=== PATIENT | male | born 1985 | race Caucasian/White ===

== ENCOUNTER 2016-09-28 08:39 | Emergency (ER) | payer SELFPAY ==
[2016-09-28 09:25] LABS: ABSOLUTE BASOPHILS # (AUTO) 0.1 10^3/uL (0.0-0.2); ABSOLUTE EOSINOPHILS # (AUTO) 0.1 10^3/uL (0.0-0.6); ABSOLUTE LYMPHOCYTES (AUTO) 1.9 10^3/uL (0.5-4.7); ABSOLUTE MONOCYTES (AUTO) 0.6 10^3/uL (0.1-1.4); ABSOLUTE NEUT (AUTO) 5.5 10^3/uL (1.7-8.2); BASOPHILS % (AUTO) 0.8 % (0-2); EOSINOPHILS % (AUTO) 1.4 % (0-6); HEMATOCRIT 47.4 % (37.9-51.0); HEMOGLOBIN 16.2 g/dL (13.5-17.0); HGB HCT DIFFERENCE 1.2; LYMPHOCYTES % (AUTO) 23.4 % (13-45); MEAN CORPUSCULAR HEMOGLOBIN 29.2 pg (27.0-33.4); MEAN CORPUSCULAR HGB CONC 34.1 g/dL (32.0-36.0); MEAN CORPUSCULAR VOLUME 86 fl (80-97); MONOCYTES % (AUTO) 7.1 % (3-13); RED BLOOD COUNT 5.54 10^6/uL (4.35-5.55); RED CELL DISTRIBUTION WIDTH 13.1 % (11.5-14.0); SEGMENTED NEUTROPHILS % (AUTO) 67.3 % (42-78); WHITE BLOOD COUNT 8.2 10^3/uL (4.0-10.5)
[2016-09-28 09:36] LABS: ALANINE AMINOTRANSFERASE 87 U/L (21-72); ALBUMIN 3.9 g/dL (3.5-5.0); ALKALINE PHOSPHATASE 108 U/L (38-126); ANION GAP 15 (5-19); ASPARTATE AMINO TRANSFERASE 97 U/L (17-59); BILIRUBIN,TOTAL 0.4 mg/dL (0.2-1.3); BLOOD UREA NITROGEN 11 mg/dL (7-20); CALCIUM 8.7 mg/dL (8.4-10.2); CARBON DIOXIDE 26 mmol/L (22-30); CHLORIDE 103 mmol/L (98-107); CREATININE RESULT 0.66 mg/dL (0.52-1.25); GLUCOSE 118 mg/dL (75-110); POTASSIUM 4.4 mmol/L (3.6-5.0); SODIUM 144.4 mmol/L (137-145); TOTAL PROTEIN 6.9 g/dL (6.3-8.2)
[2016-09-28 09:46] LABS: ALCOHOL 466 mg/dL (NONE DETECTED)
[2016-09-28 10:09] LABS: APPEARANCE,URINE CLEAR; BILIRUBIN,URINE NEGATIVE (NEGATIVE); GLUCOSE, URINE NEGATIVE (NEGATIVE); KETONES,URINE NEGATIVE (NEGATIVE); LEUKOCYTE ESTERASE,URINE NEGATIVE (NEGATIVE); NITRITE,URINE NEGATIVE (NEGATIVE); PROTEIN,URINE 30 mg/dL (NEGATIVE); URINE SPECIFIC GRAVITY 1.005; UROBILINOGEN,URINE NEGATIVE mg/dL (<2.0)
[2016-09-28 10:27] LABS: URINE BARBITURATES SCREEN NEGATIVE; URINE METHADONE SCREEN NEGATIVE; URINE PHENCYCLIDINE SCREEN NEGATIVE
--- NOTE | 2016-09-28 11:09 | ER Document Report ---
ED General - General Mode of Arrival: Medic Information source: Patient TRAVEL OUTSIDE OF THE U.S. IN LAST 30 DAYS: No - HPI Onset: Other - see narrative Onset/Duration: Persistent Associated symptoms: None <SERA OAKLEY - Last Filed: 09/28/16 15:27> <SHARONDA HERMAN - Last Filed: 09/28/16 23:58> <YANY HAM - Last Filed: 09/29/16 07:19> <LILLIAN BILLINGSLEY - Last Filed: 09/29/16 12:13> - General Chief Complaint: ETOH Abuse Stated Complaint: POSSIBLE ETOH Notes: Patient is a 31 year old male that presents to the emergency department today with complaints of "alcohol poisoning". Patient was brought in by EMS secondary to being found slumped against a wall at [facility]. Patient states he has been drinking for 3 straight days and that he does not normally drink. 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 Patient states he had a relationship with a girl that "did not work out" so [facility]. Patient is arousable with sternal rub. (SERA OAKLEY) Past Medical History - General Information source: Patient - Social History Smoking Status: Unknown if Ever Smoked Cigarette use (# per day): No Frequency of alcohol use: Heavy Drug Abuse: None Lives with: Family Family History: Reviewed & Not Pertinent Patient has suicidal ideation: No Patient has homicidal ideation: No - Past Medical History Cardiac Medical History: Reports: Hx Hypertension Surgical Hx: Negative <SERA OAKLEY - Last Filed: 09/28/16 15:27> Review of Systems - Review of Systems -: Yes ROS unobtainable due to patient's medical condition - intoxicated <SERA OAKLEY - Last Filed: 09/28/16 15:27> Physical Exam - General General appearance: Other - appears intoxicated, aroused with sternal rub - HEENT Head: Normocephalic, Atraumatic Eyes: Normal Conjunctiva: Normal - Respiratory Respiratory status: No respiratory distress Chest status: Nontender Breath sounds: Normal - Cardiovascular Rhythm: Regular Heart sounds: Normal auscultation - Abdominal Tenderness: Tender - diffusely tender, no external bruising - Extremities General upper extremity: Normal inspection, Nontender. No: Edema General lower extremity: Normal inspection, Nontender. No: Edema - Neurological Neuro grossly intact: Yes Cognition: Normal Orientation: AAOx4 - Psychological Associated symptoms: Other - intoxicated - Skin Skin Temperature: Warm Skin Moisture: Dry Skin Color: Normal <SERA OAKLEY - Last Filed: 09/28/16 15:27> Course - Laboratory Result Diagrams: 09/28/16 08:50 09/28/16 08:50 <SERA OAKLEY - Last Filed: 09/28/16 15:27> - Laboratory Result Diagrams: 09/28/16 08:50 09/28/16 08:50 <SHARONDA HERMAN - Last Filed: 09/28/16 23:58> - Laboratory Result Diagrams: 09/28/16 08:50 09/28/16 08:50 <YANY HAM - Last Filed: 09/29/16 07:19> - Laboratory Result Diagrams: 09/28/16 08:50 09/28/16 08:50 <LILLIAN BILLINGSLEY - Last Filed: 09/29/16 12:13> - Re-evaluation Re-evalutation: 09/28/16 21:49 I personally performed the services described in the documentation, reviewed and edited the documentation which was dictated to my scribe in my presence, and it accurately records my words and actions. \\ Patient brought into the emergency department after EMS was called at [facility]. Patient was apparently heavily intoxicated on ED arrival he smells of alcohol has a blood alcohol level CDLXVI no external signs of trauma neurological deficits and is maintaining his airway. She'll he had some mild abdominal tenderness we did a CAT scan rule out trauma was negative. Reassessing him on multiple occasions. Call to the bedside by nurse apparently he got into his bag and was drinking more alcohol in the room and then was being in the trashcan. Reassessed him at this point still awake alert and arousable, further discussion with the patient he states he was suicidal and wants to harm himself. He is currently here the other day intoxicated describes a long- standing history of substance abuse but won't specifically tell me what. Denies any recent use of drugs. Says he has been drinking heavily for the past 4 days. He states he wants to drink himself until he dies. States he has a history of alcohol withdrawal alcohol poisoning with hospital visits in the past and withdrawal seizures. He P alcohol drawn banana bag given patient assessed agitated given Ativan Patient placed on IVC given Ativan not hypertensive or tachycardic IVC protocol spoke with Dr. Ham in regards to watching for alcohol withdrawal. Patient is on any seizure activity at this point. (SHARONDA HERMAN) 09/29/16 06:18 Patient again awoke briefly to tell the nurse that he would like some benzodiazepine medications for withdrawal. The nurse came in and told me this. She also informed me that he has no tremor and his heart rate has been normal. He has not had vomiting and to her he looks very well. Ten minutes later I was able to go and evaluate the patient. He once again was asleep. He does not have a tremor. His heart rate is normal. He has no signs of withdrawal. 09/29/16 07:19 Liver evaluate the patient now. He now has intermittent tremor. His heart rate is in the low 100s. I will give him 5mg Valium as these are the first physical signs of withdrawal. I did check out the patient to the morning ER physician, Dr. Tadeo, who will continue to monitor the patient. (YANY HAM) - Vital Signs Vital signs: Temp Pulse Resp BP Pulse Ox 97.5 F 114 H 14 136/84 H 93 09/29/16 07:05 09/28/16 22:11 09/29/16 07:00 09/28/16 22:11 09/29/16 07:00 (SERA OAKLEY) (SHARONDA HERMAN) (YANY HAM) (LILLIAN BILLINGSLEY) - Laboratory Laboratory results interpreted by me: 09/28/16 09/28/16 09/28/16 08:50 09:55 22:11 Glucose 118 H AST 97 H ALT 87 H Urine Protein 30 H Urine Blood SMALL H Salicylates < 1.0 L Acetaminophen < 10 L Serum Alcohol 466 H* (SERA OAKLEY) (SHARONDA HERMAN) (YANY HAM) (LILLIAN BILLINGSLEY) - EKG Interpretation by Me Additional EKG results interpreted by me: 09/29/16 00:34 EKG is reviewed and interpreted by me. EKG shows normal sinus rhythm with rate of [address] segment elevation or depression. No ischemic T wave inversions. NJ interval, QRS duration, QTC levels are within normal range. No old EKG available for comparison. (YANY HAM) - Transfer of Care Notes: 09/29/16 02:00 Patient's nurse if he could have some for withdrawal symptoms. Pressors physician and signs of withdrawal. He's had no tremors. He has not been tachycardic. Some seizure-like activity. He slept well. He is infectious of most of time is spent here. I went in to reassess him. Patient's currently sleeping. He's not tachycardic. Has no signs of seizures. I will continue to reassess him for signs of withdrawal. He did receive Ativan not long ago. This caused him to have a slight oxygen desaturation therefore did not want to do more benzodiazepines at this time unless he is showing actual signs of withdrawal. (YANY HAM) Discharge <SERA OAKLEY - Last Filed: 09/28/16 15:27> <SHARONDA HERMAN - Last Filed: 09/28/16 23:58> <YANY HAM - Last Filed: 09/29/16 07:19> <LILLIAN BILLINGSLEY - Last Filed: 09/29/16 12:13> - Discharge Clinical Impression: etoh intoxication, Suicidal ideation Condition: Stable Disposition: HOME, SELF-CARE Additional Instructions: ACUTE ALCOHOL INTOXICATION and ALCOHOL ABUSE: Your evaluation revealed very high levels of alcohol. You can from drinking a large amount of alcohol rapidly! Further, there's the risk of falls , traffic accidents, and fights. A high portion (about 50 percent) of the serious injuries seen in hospital emergency rooms are caused by alcohol. Alcohol overdosage is usually due to an underlying emotional or psychiatric problem. You may benefit from counselling. If "binge" drinking is an ongoing problem for you, or if you drink ANY AMOUNT of alcohol EVERY day, you most likely have a tendency to alcoholism. You should avoid alcohol totally. We can refer you for treatment. Persons with alcohol problems are often also prone to other addictions -- you should discuss any use of medications or drugs with the doctor. You should be watched at home for the next several hours by someone who has not been drinking. Get extra fluids for the next 24 hours. Call the doctor if there is repeated vomiting, increasing headache, decreasing level of alertness, or any other worsening. CHRONIC ALCOHOLISM and ALCOHOL ABUSE: Your evaluation reveals evidence of chronic alcoholism, an addiction to alcohol. The tendency to alcoholism may be inherited. Chronic use of alcohol weakens muscles, causes fatty deposits in the liver , damages the stomach, makes you more prone to infections, and can cause defects in unborn children. In the long run, brain atrophy and cirrhosis of the liver result. You are also at greater risk for certain types of cancer, such as cancer of the mouth, throat, stomach, and liver. Counselling services are available to help you. In-hospital treatment programs often help. Support groups such as Alcoholics Anonymous can be very useful in beating this addiction. Your physician can make a referral for you. As alcoholics often are prone to other addictions, you should discuss your use of any other medications with the doctor. ALCOHOL WITHDRAWAL: Your symptoms are caused by alcohol withdrawal. After a period of frequent drinking, the brain and body are changed by the alcohol. When you quit or reduce your drinking, the nervous system becomes unstable. Withdrawal symptoms can start a few hours after your last drink, but sometimes don't begin until a couple of days later. Symptoms can include shakiness, sweating, insomnia, nausea , vomiting, fearfulness, hallucinations, and seizures. In addition to the acute effects of alcohol withdrawal, we often have to deal with the medical effects of alcoholism. These problems often include dehydration, stomach irritation, intestinal bleeding, low blood sugar, liver disease, and pancreas inflammation. Treatment for alcohol withdrawal includes mild sedatives, vitamins, and fluids. You need to be with someone who can help if symptoms become severe. Many patients can withdraw at home. Admission to the hospital or a detox facility may be necessary if withdrawal symptoms are severe and uncontrollable. Abstaining from alcohol is the only effective long-term treatment. If you start drinking again, you will not be able to control yourself after the first drink. Treatment programs are available. In addition, many alcoholics benefit from Alcoholics Anonymous or other support groups available through your counselor or mandaeism senior revenue accountant. AL-ANON and ALA-TEEN are support groups for friends and family members of an alcoholic. Go to the emergency room if you develop persistent vomiting, severe abdominal pain, fever, shortness of breath, hallucinations, uncontrollable tremors, or seizures. Diphenhydramine The use of diphenhydramine (Benadryl) has been recommended to control allergic symptoms. The 25 mg strength is available over- the-counter, as well as the elixir. This antihistamine is used for many symptoms. It's useful for itching, watering eyes and nose, allergic swelling, hives, and insect stings. The medication can be repeated four times daily. Age Elixir (12.5 mg/tsp) 25 mg pill adult 2 tabs Antihistamines may cause drowsiness, especially with the first dose. Do not operate machinery or drive while under the effects of the medication. Do not combine the medication with alcohol, or with any other medication without talking to your doctor. FOR THE OBSERVER: Observe the patient for the next 24 hours and call or go to the hospital if any of the following are noted: prolonged or repeated vomiting, difficulty in arousing, convulsions (seizures or fits), fever, persistent cough, breathing that is too slow or too rapid, or confused or bizarre behavior. If a counselling visit has been arranged, make sure the patient attends. Call the physician or poison control if you have questions. FOLLOW-UP CARE: If you have been referred to a physician for follow-up care, call the physician s office for an appointment as you were instructed or within the next two days. If you experience worsening or a significant change in your symptoms, notify the physician immediately or return to the Emergency Department at any time for re-evaluation. We recommend you follow-up at [facility] today, after you are discharged from the emergency department. Scribe Documentation - Scribe Written by Demarcus:: Demarcus Del Castillo, [id number] (09/28/2016) acting as scribe for :: Hay <SERA OAKLEY - Last Filed: 09/28/16 15:27>
[2016-09-28] MEDS ORDERED: NORMAL SALINE 1000 ML 1,000 ML with POTASSIUM CHLORIDE 20 MEQ, MAGNESIUM SULFATE 8 MEQ,... IV PRN ×5 (12:01)
[2016-09-28 22:30] LABS: ALCOHOL 252 mg/dL (NONE DETECTED)
[2016-09-28] MEDS ORDERED: LORAZEPAM 0.5 MG TABLET PO ONE (23:57)
[2016-09-29] MEDS ORDERED: DIAZEPAM INJ 10 MG/2 ML DISP.SYRIN IV ONE (07:19)
[2016-09-29] MEDS ORDERED: HYDROXYZINE PAMOATE 50 MG CAPSULE PO PRN (10:03)
[2016-09-29] MEDS ORDERED: LORAZEPAM INJ 2 MG/1 ML VIAL IV ONE (10:03)
--- NOTE | 2016-09-29 10:03 | ER Document Report ---
Doctor's Note Notes: 09/29/16 10:00 Rounds: Chart reviewed and patient interviewed. Patient is alert and oriented and answers questions appropriately. He is shaking. However, his heart rate is about 80. Patient's initial alcohol was 466 but it was down to 252 last night and by calculation, should be about 0 this morning. Patient says he's been drinking for about 5 days. I advised the patient of his very slight elevation of his liver function tests, likely related to his alcohol intake. Does have outpatient mental health [facility], but has been prescribed antidepressant medicines and not taking it during this alcohol binge. Vital signs are all normal. Patient requesting something for his nerves. I'm going to give him one more single dose of Ativan IV and start him on Vistaril by mouth. Patient appears to be medically stable for transfer or discharge. Noah Seaman M.D.
[2016-09-29] MEDS ORDERED: HYDROXYZINE PAMOATE 50 MG CAPSULE PO ONE (10:04)
--- NOTE | 2016-09-29 10:10 | EKG REPORT ---
SEVERITY:- NORMAL ECG - SINUS RHYTHM : Confirmed by: Mateus Goode 29-Sep-2016 10:09:37
--- NOTE | 2016-09-29 11:49 | PSYCHOLOGICAL NOTE ---
Psych Note - Psych Note Psych Note: Patient is a 31 year old male who presented yesterday via EMS acutely intoxicated after being found slumped against a wall in [employer] [place]. Patient's BAL was 466 at 0840 am yesterday morning, and did report upon arrival that he had been on a 3 day binge. Patient this morning states he would like to go to detox. He reports that he has been before, around this time last year in [place]. Patient states he moved here recently for a relationship with a woman he met and dated online. He states upon arrival, both the relationship and the job he had lined up manifested, and he is now homeless. Patient states he has been drinking his whole life, and drinks most days all day. Patient states he is experiencing withdrawal related symptoms at this time, but did not specify. Patient states he does have a history of withdrawal related seizures. Patient denies suicidal ideation, intent, plan, or means. Patient denies prior suicide attempts, although acknowledges that his drinking is harmful. Patient additionally reported he is homeless and there is no one to contact for collateral information. Patient is A & Ox4. Mood is anxious with congruent affect. Patient denies suicidal/homicidal ideations, intent, plan, or means. Patient denies A/V H; delusions not noted. Thought processes were organized. Conversational speech was WNL for rate, tone, and prosody. Intellectual abilities were estimated within average range. Attention and focus were fair. Insight, judgment, and impulse control were poor. 291.9 (F10.99) Unspecified Alcohol Related Disorder Patient's presenting symptoms are similar to that of an Alcohol Use Disorder and cause clinically significant distress in all domains of his life At this time and in this setting, there is not enough information to make a more specific diagnosis (eg Severe Use vs Moderate). Patient is psychiatrically cleared for discharge and recommended for rescind IVC. Patient is recommended to follow up with a local provider to pursue detox for ETOH. Patient advised that pursuing detox in [place], as well as longer term treatment is largely a voluntary process in [place]. Patient provided resources. I consulted with Dr. Washington in regards to the care and management of this patient.
[2016-09-29 12:29] VITALS: BP 154/86
== END 2016-09-29 12:29 | disposition home or self-care (01) ==
LOC: ER 08:39
DX: F10.120 Alcohol abuse with intoxication, uncomplicated (principal); R45.851 Suicidal ideations
CPT/HCPCS: 93005; 36415; 83690; 85025; 80053; 81001; 74177; 93010; G0479 ×4; J3360; J3475; J2060; J3480; J3411; J7030; J3490; 80307

== ENCOUNTER 2016-09-29 23:43 | Emergency (ER) | payer SELFPAY ==
--- NOTE | 2016-09-30 02:59 | ER Document Report ---
ED General - General Cannot obtain history due to: Intoxicated, Uncooperative TRAVEL OUTSIDE OF THE [place].S. IN LAST 30 DAYS: No <YANY TONG - Last Filed: 09/30/16 02:59> <VERO CUMMINGS - Last Filed: 09/30/16 14:44> - General Chief Complaint: ETOH Abuse Stated Complaint: POSSIBLE ETOH Notes: Patient arrives by EMS intoxicated, apparently slammed his last beer just prior to EMS arrival. He was found by a concerned passerby who found him sleeping under an [address] weiss and contacted EMS. Patient has been seen in the emergency department 2 times prior for similar situations. He is extremely and intoxicated but does deny any concerns time of arrival by EMS. Denies any SI or HI. Denies any coingestions. States he is here "because you didn't fix me last time" (YANY TONG) - Related Data Allergies/Adverse Reactions: No Known Allergies Allergy (Unverified 09/29/16 08:09) Past Medical History - General Information source: Emergency Med Personnel - Social History Smoking Status: Current Every Day Smoker Frequency of alcohol use: Heavy Drug Abuse: None Lives with: Homeless Family History: Reviewed & Not Pertinent - Past Medical History Cardiac Medical History: Reports: Hx Hypertension - Immunizations Hx Diphtheria, Pertussis, Tetanus Vaccination: - uncertain <YANY TONG - Last Filed: 09/30/16 02:59> Review of Systems - Review of Systems -: Yes ROS unobtainable due to patient's medical condition <YANY TONG - Last Filed: 09/30/16 02:59> Physical Exam - Vital signs Interpretation: Normal <YANY TONG - Last Filed: 09/30/16 02:59> <VERO CUMMINGS - Last Filed: 09/30/16 14:44> - Vital signs Vitals: Resp 12 09/30/16 00:11 (YANY TONG) (VERO CUMMINGS) Notes: PHYSICAL EXAMINATION: GENERAL: Disheveled, malodorous. HEAD: Atraumatic, normocephalic. EYES: Pupils equal round and reactive to light, extraocular movements intact, sclera anicteric, conjunctiva are normal. ENT: nares patent, oropharynx clear without exudates. Moderately dry mucous membranes. NECK: Normal range of motion, supple without lymphadenopathy LUNGS: Breath sounds clear to auscultation bilaterally and equal. No wheezes rales or rhonchi. HEART: Regular rate and rhythm without murmurs ABDOMEN: Soft, nontender, normoactive bowel sounds. No guarding, no rebound. No masses appreciated. EXTREMITIES: Normal range of motion, no pitting or edema. No cyanosis. NEUROLOGICAL: No focal neurological deficits. Moves all extremities spontaneously and on command. PSYCH: Heavily intoxicated SKIN: Warm, Dry, normal turgor, no rashes or lesions noted. (YANY TONG) Course <YANY TONG - Last Filed: 09/30/16 02:59> - Laboratory Result Diagrams: 09/30/16 12:40 09/30/16 12:40 <VERO CUMMINGS - Last Filed: 09/30/16 14:44> - Re-evaluation Re-evalutation: 09/30/16 02:57 Patient arrives intoxicated without any medical complaint. He denies any psychiatric concerns. He has been seen the emergency department several times prior for the same presentation in just the past several weeks. He has already had a psychiatric evaluation. I do not believe any medical strain laboratories are indicated at this time based on the context of patient's presentation. Given his degree of intoxication, he has been placed on a continuous pulse oximeter, his belongings have been removed from the room as on his most recent evaluation emergency room and he apparently was noted to drink 5 beers in his room and then urinate into a garbage can. He'll be monitored until he is clinically sober and then discharged. (YANY TONG) - Vital Signs Vital signs: Temp Pulse Resp BP Pulse Ox 97.9 F 90 18 151/95 H 97 09/30/16 13:26 09/30/16 13:26 09/30/16 13:26 09/30/16 13:26 09/30/16 13:26 (YANY TONG) (VERO CUMMINGS) - Laboratory Laboratory results interpreted by me: 09/30/16 09/30/16 12:40 12:40 RBC 5.78 H Seg Neutrophils % 82.7 H Lymphocytes % 9.7 L Sodium 146.3 H Chloride 108 H AST 263 H ALT 186 H Salicylates < 1.0 L Acetaminophen < 10 L (VERO CUMMINGS) Discharge <YANY TONG - Last Filed: 09/30/16 02:59> <VERO CUMMINGS - Last Filed: 09/30/16 14:44> - Discharge Clinical Impression: Alcohol intoxication Qualifiers: Complication of substance-induced condition: uncomplicated Qualified Code(s): F10.120 - Alcohol abuse with intoxication, uncomplicated Laceration of wrist Qualifiers: Encounter type: initial encounter Laterality: left Qualified Code(s): S61.512A - Laceration without foreign body of left wrist, initial encounter Condition: Good Disposition: PSYCH HOSP/UNIT Instructions: Laceration Care ([facility]) Additional Instructions: You will go to A for further care Follow up in 10 days for removal of your sutures or sooner if any sign of infection Forms: Elevated Blood Pressure
--- NOTE | 2016-09-30 05:59 | ER Document Report ---
Doctor's Note Notes: 09/30/16 05:59 Patient evaluated at the bedside sleeping on examination arousable to sternal rub. On the monitor not hypoxic no acute respiratory distress.
--- NOTE | 2016-09-30 10:01 | ER Document Report ---
Doctor's Note Notes: 09/30/16 10:00 Patient was alert oriented walking around going to the bathroom, discharge papers were given since he was sober. He then took a pocket knife and cut himself since he wishes to detox and does not wish to leave the hospital Superficial laceration left arm noted 09/30/16 11:42
[2016-09-30] MEDS ORDERED: LIDOCAINE 1% INJ-PF (10 MG/ML) 30 ML SDV INJ ONE (10:06)
[2016-09-30 13:05] LABS: ABSOLUTE EOSINOPHILS # (AUTO) 0.1 10^3/uL (0.0-0.6); ABSOLUTE LYMPHOCYTES (AUTO) 0.7 10^3/uL (0.5-4.7); ABSOLUTE MONOCYTES (AUTO) 0.4 10^3/uL (0.1-1.4); BASOPHILS % (AUTO) 0.6 % (0-2); EOSINOPHILS % (AUTO) 1.6 % (0-6); HEMOGLOBIN 16.9 g/dL (13.5-17.0); HGB HCT DIFFERENCE 1.7; LYMPHOCYTES % (AUTO) 9.7 % (13-45); MEAN CORPUSCULAR HEMOGLOBIN 29.3 pg (27.0-33.4); MEAN CORPUSCULAR HGB CONC 34.5 g/dL (32.0-36.0); MEAN CORPUSCULAR VOLUME 85 fl (80-97); MONOCYTES % (AUTO) 5.4 % (3-13); RED BLOOD COUNT 5.78 10^6/uL (4.35-5.55); RED CELL DISTRIBUTION WIDTH 13.1 % (11.5-14.0); SEGMENTED NEUTROPHILS % (AUTO) 82.7 % (42-78); WHITE BLOOD COUNT 7.2 10^3/uL (4.0-10.5)
[2016-09-30 13:20] LABS: ALANINE AMINOTRANSFERASE 186 U/L (21-72); ALBUMIN 4.4 g/dL (3.5-5.0); ALCOHOL 222 mg/dL (NONE DETECTED); ALKALINE PHOSPHATASE 115 U/L (38-126); ANION GAP 15 (5-19); ASPARTATE AMINO TRANSFERASE 263 U/L (17-59); BILIRUBIN,TOTAL 0.6 mg/dL (0.2-1.3); BLOOD UREA NITROGEN 7 mg/dL (7-20); CALCIUM 8.9 mg/dL (8.4-10.2); CARBON DIOXIDE 23 mmol/L (22-30); CHLORIDE 108 mmol/L (98-107); CREATININE RESULT 0.69 mg/dL (0.52-1.25); GLUCOSE 79 mg/dL (75-110); POTASSIUM 4.6 mmol/L (3.6-5.0); SODIUM 146.3 mmol/L (137-145); TOTAL PROTEIN 7.2 g/dL (6.3-8.2)
[2016-09-30 13:35] LABS: APPEARANCE,URINE CLEAR; BILIRUBIN,URINE NEGATIVE (NEGATIVE); GLUCOSE, URINE NEGATIVE (NEGATIVE); KETONES,URINE NEGATIVE (NEGATIVE); LEUKOCYTE ESTERASE,URINE NEGATIVE (NEGATIVE); NITRITE,URINE NEGATIVE (NEGATIVE); PROTEIN,URINE NEGATIVE (NEGATIVE); UROBILINOGEN,URINE NEGATIVE mg/dL (<2.0)
[2016-09-30 13:57] LABS: URINE BARBITURATES SCREEN NEGATIVE; URINE METHADONE SCREEN NEGATIVE; URINE PHENCYCLIDINE SCREEN NEGATIVE
[2016-09-30 14:58] VITALS: BP 157/103
--- NOTE | 2016-09-30 15:36 | EKG REPORT ---
SEVERITY:- NORMAL ECG - SINUS RHYTHM : Confirmed by: Mateus Goode 30-Sep-2016 15:36:22
--- NOTE | 2016-09-30 18:30 | PSYCHOLOGICAL NOTE ---
Psych Note - Psych Note Psych Note: Patient presented to [facility] ED for alcohol abuse on . Upon being notified of discharge when sober the patient took a knife and cut his forearm. Patient is currently under the influence however demonstrates a high level of functioning. This patient is known to this clinician and was previously assessed on 09/25/2016. Patient disclosed he attempted to go to [facility] for services but they stated there was no bed for him. He continue disclose that he went to the retirement but there was no beds there. He stated he had nowhere to go he needs to go to detox because his drinking is out of control. Patient states "I'm begging U I need help." Clinician spoke to patient's father, Sorin. He disclose the patient has been in rehabilitation 3 times in the past to include one time for suicidal ideation. He disclose he believes that his son is supposed to take depression medication but is unsure what he takes. He continue disclose that when he is drinking it's like he lives on the streets however he's always had a vehicle to sleep and period now he has no vehicle which is good because of his drinking problem however now he really is living on the streets. He continue disclose that he attempted to get his son back to [place] however those attempts of been unsuccessful. He he stated his son came to [place] after meeting somebody through the Internet however she left him at a store which he believes was after she saw his drinking problem. He continue disclose that the patient has had 2 wives and many girlfriends and started drinking young. Clinician made contact with [facility] to discuss possible assistance for detox for patient. It was explained the patient is currently homeless and has never lived on the streets before. [facility] stated for patient to come to them and they will look for inpatient treatment for substance abuse. If There is no bed found for this patient in detox they will assist in finding a bed in the retirement. Patient is alert and orientated to person place time and circumstance. Mood is dysphoric with tearful affect. Patient denies suicidal and homicidal ideation but expressed despondency and being unable to find assistance for substance abuse treatment. Patient denies auditory and visual hallucinations; no delusions are noted. Thought process is organized and linear. Conversational speech is within normal rate, tone, and prosody. Eye contact was not well maintained. Intellectual abilities appear to be within normal range. Attention and concentration are fair. Insight, judgment, impulse control are poor due to substance abuse. 291.9 (F10.99) Unspecified Alcohol Related Disorder Impression\\plan Clinician: Patient is recommended for recent of IVC is considered psychiatrically cleared for discharge. Patient has expressed wanting inpatient treatment for substance abuse. While the patient has demonstrated poor impulse control it was identified by patient as behavioral not attempt on life. Patient states that even after harming himself he just wants someone to help him with his substance abuse. Patient is psychiatrically cleared for discharge. Patient will be receiving services through [facility] for inpatient treatment for substance abuse. If services are not identified for him today, they will assist in retirement placement. Attending physician is in agreement with recommendation and disposition.
== END 2016-09-30 15:00 ==
LOC: ER 23:43
DX: S61.512A Laceration without foreign body of left wrist, initial encounter (principal); F10.120 Alcohol abuse with intoxication, uncomplicated; F17.210 Nicotine dependence, cigarettes, uncomplicated; W45.8XXA Other foreign body or object entering through skin, initial encounter
CPT/HCPCS: 93005; 36415; 85025; 80053; 81001; 93010; G0479 ×4; 80307; 99285

== ENCOUNTER 2016-10-01 13:58 | Emergency (ER) | payer SELFPAY ==
--- NOTE | 2016-10-01 14:45 | ER Document Report ---
ED General - General Chief Complaint: Alcohol Withdrawl Stated Complaint: DETOX Time seen by provider: 14:43 Mode of Arrival: Ambulatory Information source: Patient Notes: This is a 31-year-old man with a history of alcohol abuse seen multiple times in the emergency room in the past week. Patient was most recently in the ER yesterday and on discharge had purposely cut himself. Patient was observed further and evaluated by psychiatry and released. He presents via EMS wanting detox for alcohol abuse. Patient is verbally hostile to ER staff. TRAVEL OUTSIDE OF THE [place] IN LAST 30 DAYS: No - HPI Onset: Last week Onset/Duration: Gradual Quality of pain: No pain Severity: None Pain Level: Denies Associated symptoms: None Exacerbated by: Denies Relieved by: Denies Similar symptoms previously: Yes Recently seen / treated by doctor: Yes - Related Data Allergies/Adverse Reactions: No Known Allergies Allergy (Verified 10/01/16 22:08) Past Medical History - General Information source: Patient - Social History Smoking Status: Never Smoker Cigarette use (# per day): No Chew tobacco use (# tins/day): No Frequency of alcohol use: Heavy Drug Abuse: None Lives with: Alone Family History: Reviewed & Not Pertinent Patient has suicidal ideation: No Patient has homicidal ideation: No - Past Medical History Cardiac Medical History: Reports: Hx Hypertension Pulmonary Medical History: Reports: None EENT Medical History: Reports: None Neurological Medical History: Reports: None Endocrine Medical History: Reports: None Renal/ Medical History: Reports: None Malignancy Medical History: Reports None GI Medical History: Reports: None Musculoskeltal Medical History: Reports None Skin Medical History: Reports None Psychiatric Medical History: Reports: None Traumatic Medical History: Reports: None Infectious Medical History: Reports: None Surgical Hx: Negative - Immunizations Hx Diphtheria, Pertussis, Tetanus Vaccination: - uncertain Review of Systems - Review of Systems Constitutional: No symptoms reported EENT: No symptoms reported Cardiovascular: No symptoms reported Respiratory: No symptoms reported Gastrointestinal: No symptoms reported Genitourinary: No symptoms reported Male Genitourinary: No symptoms reported Musculoskeletal: No symptoms reported Skin: No symptoms reported Hematologic/Lymphatic: No symptoms reported Neurological/Psychological: See HPI Physical Exam - Vital signs Vitals: Temp Pulse Resp BP Pulse Ox 98.7 F 96 18 159/108 H 98 10/01/16 14:48 10/01/16 14:48 10/01/16 14:48 10/01/16 14:48 10/01/16 14:48 Notes: Physical exam: GENERAL: 31-year-old man sleeping in stretcher, argumentative and physically confrontational on attempts to awake him for an interview. HEAD: Atraumatic, normocephalic. EYES: Pupils equal round and reactive to light, extraocular movements intact, sclera anicteric, conjunctiva are normal. ENT: Moist mucous membranes. NECK: Normal range of motion, supple without lymphadenopathy. LUNGS: Breath sounds clear to auscultation bilaterally and equal. No wheezes rales or rhonchi. HEART: Regular rate and rhythm without murmurs, rubs or gallops. ABDOMEN: Soft, nontender, normoactive bowel sounds. No guarding, no rebound. No masses appreciated. EXTREMITIES: Normal range of motion, no pitting or edema. No clubbing or cyanosis. NEUROLOGICAL: Cranial nerves II through XII grossly intact. Alcohol on breath, moving all extremities. SKIN: Left forearm laceration with sutures still in place: No obvious source of infection. Course - Vital Signs Vital signs: Temp Pulse Resp BP Pulse Ox 97.2 F 85 14 143/72 H 95 10/01/16 20:00 10/01/16 20:00 10/01/16 20:00 10/01/16 20:00 10/01/16 20:00 - Laboratory Result Diagrams: 10/01/16 14:25 10/01/16 14:25 Laboratory results interpreted by me: 10/01/16 10/01/16 14:25 14:25 RBC 5.84 H Hgb 17.2 H Sodium 147.3 H BUN 6 L AST 274 H ALT 212 H Salicylates < 1.0 L Acetaminophen < 10 L Serum Alcohol 388 H* - EKG Interpretation by [place] Rate: Normal Rhythm: NSR - EKG shows normal sinus rhythm with a ventricular rate of 92, no acute ST-T wave changes Discharge - Discharge Clinical Impression: alcohol abuse, mood disorder NOS Condition: Stable Disposition: PSYCH HOSP/UNIT
[2016-10-01 14:54] LABS: ABSOLUTE EOSINOPHILS # (AUTO) 0.1 10^3/uL (0.0-0.6); ABSOLUTE LYMPHOCYTES (AUTO) 1.2 10^3/uL (0.5-4.7); ABSOLUTE MONOCYTES (AUTO) 0.5 10^3/uL (0.1-1.4); ABSOLUTE NEUT (AUTO) 5.2 10^3/uL (1.7-8.2); BASOPHILS % (AUTO) 0.5 % (0-2); EOSINOPHILS % (AUTO) 1.2 % (0-6); HEMATOCRIT 49.1 % (37.9-51.0); HEMOGLOBIN 17.2 g/dL (13.5-17.0); HGB HCT DIFFERENCE 2.5; LYMPHOCYTES % (AUTO) 17.1 % (13-45); MEAN CORPUSCULAR HEMOGLOBIN 29.5 pg (27.0-33.4); MEAN CORPUSCULAR HGB CONC 35.1 g/dL (32.0-36.0); MEAN CORPUSCULAR VOLUME 84 fl (80-97); MONOCYTES % (AUTO) 7.4 % (3-13); RED BLOOD COUNT 5.84 10^6/uL (4.35-5.55); RED CELL DISTRIBUTION WIDTH 13.2 % (11.5-14.0); SEGMENTED NEUTROPHILS % (AUTO) 73.8 % (42-78); WHITE BLOOD COUNT 7.1 10^3/uL (4.0-10.5)
[2016-10-01 15:17] LABS: ALANINE AMINOTRANSFERASE 212 U/L (21-72); ALBUMIN 4.2 g/dL (3.5-5.0); ALKALINE PHOSPHATASE 120 U/L (38-126); ANION GAP 17 (5-19); ASPARTATE AMINO TRANSFERASE 274 U/L (17-59); BILIRUBIN,TOTAL 0.4 mg/dL (0.2-1.3); BLOOD UREA NITROGEN 6 mg/dL (7-20); CALCIUM 8.8 mg/dL (8.4-10.2); CARBON DIOXIDE 24 mmol/L (22-30); CHLORIDE 106 mmol/L (98-107); CREATININE RESULT 0.72 mg/dL (0.52-1.25); GLUCOSE 90 mg/dL (75-110); POTASSIUM 4.2 mmol/L (3.6-5.0); SODIUM 147.3 mmol/L (137-145); TOTAL PROTEIN 7.5 g/dL (6.3-8.2)
[2016-10-01 15:33] LABS: ALCOHOL 388 mg/dL (NONE DETECTED)
--- NOTE | 2016-10-01 19:48 | EKG REPORT ---
SEVERITY:- NORMAL ECG - SINUS RHYTHM : Confirmed by: Mateus Goode 01-Oct-2016 19:47:50
[2016-10-01 22:49] LABS: APPEARANCE,URINE CLEAR; BILIRUBIN,URINE NEGATIVE (NEGATIVE); GLUCOSE, URINE NEGATIVE (NEGATIVE); KETONES,URINE NEGATIVE (NEGATIVE); LEUKOCYTE ESTERASE,URINE NEGATIVE (NEGATIVE); NITRITE,URINE NEGATIVE (NEGATIVE); PROTEIN,URINE NEGATIVE (NEGATIVE); UROBILINOGEN,URINE NEGATIVE mg/dL (<2.0)
[2016-10-01] MEDS: LORAZEPAM 1 MG TABLET PO PRN (23:00)
[2016-10-01] MEDS ORDERED: CLONIDINE HCL 0.1 MG TABLET PO SCH ×2 (23:00)
[2016-10-01 23:07] LABS: URINE BARBITURATES SCREEN NEGATIVE; URINE METHADONE SCREEN NEGATIVE; URINE PHENCYCLIDINE SCREEN NEGATIVE
[2016-10-02] MEDS: LORAZEPAM 1 MG TABLET PO PRN (01:55)
[2016-10-02] MEDS ORDERED: LORAZEPAM 1 MG TABLET PO ONE (08:08)
[2016-10-02] MEDS ORDERED: CLONIDINE HCL 0.1 MG TABLET PO ONE (08:08)
--- NOTE | 2016-10-02 08:21 | PSYCHOLOGICAL NOTE ---
Psych Note - Psych Note Psych Note: Present patient presented to [facility] ED intoxicated. Patient is currently under the influence of alcohol, however he was able to disclose that he went to [facility] as planned previous day however he was told to continue drinking that evening to stay stable and come back in the morning. He continued to disclose that when he arrived at [facility] they called 911 because he was intoxicated. Patient confirms he would've drank either way but continues to state he wants assistance in achieving sobriety. Clinician discussed that patient must do this voluntarily patient states he is trying but can't find any Beds. Patient goes in and out of semi-alertness is oriented to person place and circumstance. At this time the patient's cognitive functioning is impaired from intoxication. Patient was laying on stomach with eyes closed during entire assessment. 303.90 (F10.20) alcohol use disorder; severe 303.00 (F10.229) alcohol intoxication; with use disorder moderate or severe Patient is recommended for continued IVC ;the patient's cognitive function is impaired because of his intoxication and is a danger to himself. This patient has been in [facility] approximately 1 week and is well known to this clinician and apartment because of his 4 visits that resulted in 6 days with this department since his arrival to [facility]. He suffers from severe alcohol use disorder that has impeded all facets of his life. He is currently homeless which is a new condition for him. It is noted that this patient's has substance abuse not mental health and has been using this facility as a place to stay in the evenings. This is confirmed through the patient's comments stating he has nowhere to go, the shelters are full. Patient has been given resources for the local area however is choosing to use [facility] ED as a safe place while intoxicated. It is recommended this patient be reevaluated once sober to confirm cognitive functioning is at baseline. It is noted this patient does not suffer from mental health issues.
[2016-10-02 12:52] LABS: HEMATOCRIT 47.3 % (37.9-51.0); HEMOGLOBIN 16.3 g/dL (13.5-17.0); HGB HCT DIFFERENCE 1.6; MEAN CORPUSCULAR HEMOGLOBIN 28.9 pg (27.0-33.4); MEAN CORPUSCULAR HGB CONC 34.6 g/dL (32.0-36.0); MEAN CORPUSCULAR VOLUME 84 fl (80-97); RED BLOOD COUNT 5.65 10^6/uL (4.35-5.55); RED CELL DISTRIBUTION WIDTH 12.7 % (11.5-14.0); WHITE BLOOD COUNT 10.9 10^3/uL (4.0-10.5)
[2016-10-02 13:10] LABS: BASOPHILS % (MANUAL) 0 % (0-2); EOSINOPHILS % (MANUAL) 1 % (0-6); LYMPHOCYTES % (MANUAL) 1 % (13-45); TOTAL CELLS COUNTED 100
[2016-10-02 13:11] LABS: ALANINE AMINOTRANSFERASE 191 U/L (21-72); ALBUMIN 4.2 g/dL (3.5-5.0); ALCOHOL < 10 mg/dL (NONE DETECTED); ALKALINE PHOSPHATASE 123 U/L (38-126); ANION GAP 9 (5-19); ASPARTATE AMINO TRANSFERASE 179 U/L (17-59); BILIRUBIN,TOTAL 1.3 mg/dL (0.2-1.3); BLOOD UREA NITROGEN 11 mg/dL (7-20); CALCIUM 9.5 mg/dL (8.4-10.2); CARBON DIOXIDE 28 mmol/L (22-30); CHLORIDE 100 mmol/L (98-107); CREATININE RESULT 0.75 mg/dL (0.52-1.25); GLUCOSE 88 mg/dL (75-110); POTASSIUM 4.3 mmol/L (3.6-5.0)
[2016-10-02 13:12] LABS: RBC MORPHOLOGY COMMENT NORMO-CYTIC/CHROMIC; TOXIC GRANULATION SLIGHT
--- NOTE | 2016-10-02 14:32 | ER Document Report ---
Doctor's Note Notes: 10/02/16 14:32 Labs and repeated this morning and show patient is now sober. Mental health providers have located bed alcohol treatment facility now and they're coming to get the patient. Patient is awake alert mentating clearly and stable for discharge
[2016-10-02 14:33] VITALS: BP 150/84
--- NOTE | 2016-10-04 10:23 | PSYCHOLOGICAL NOTE ---
Psych Note - Psych Note Psych Note: Present patient presented to [facility] ED intoxicated. Patient disclosed that he attempted to go to [facility] like discussed however when he arrived they told him" drink tonight to stay stable and come back in the morning " he continued to disclose when he arrived this morning they called because he was drunk. Patient states he needs help and can't seem to find anywhere to help him. Patient is semi alert and oriented [address] and Circumstance. Mood is irritable with restricted affect. Patient denies suicidal and homicidal ideation. Patient denies auditory and visual hallucinations no delusions are noted. Thought process is organized and linear. Conversation of speech is halted and muffled from patient laying face down. Patient kept eyes closed during entire discussion. Intellectual abilities appear to be within normal range. Attention and concentration are impaired. Insight, judgement, impulse control are impaired. 303.90 (F10.20) alcohol use disorder; severe: his consumption has effected all facets of life, unable to maintain relationships and employment, multiple attempts at sobriety through in-patient treatment in [place], increased tolerance, and loss of transportation of housing. Patient is recommended for rescind of IVC and is psychiatrically cleared for discharge. Patient denies suicidal homicidal ideation. He has been attempting to receive assistance for substance abuse. He has attempted to contact all local outpatient and inpatient however no beds are available. Patient is in a new living situation of living on the streets. Patient was accepted to [facility] staff will be transporting today. Patient is psychiatrically cleared for discharge. Dr. Washington was consulted on this patient attending physician is an agreement with recommendations and disposition.
== END 2016-10-02 14:49 ==
LOC: ER 13:58
DX: F10.129 Alcohol abuse with intoxication, unspecified (principal); F39 Unspecified mood [affective] disorder; I10 Essential (primary) hypertension
CPT/HCPCS: 36415; 80053; 80307; 81001; 85025; 93005; 93010; 99285

== ENCOUNTER 2017-07-05 14:28 | Emergency (ER) | payer SELFPAY ==
[2017-07-05] MEDS ORDERED: NORMAL SALINE 1000 ML 1,000 ML IV ONE (15:00)
[2017-07-05 15:32] LABS: APPEARANCE,URINE CLEAR; BILIRUBIN,URINE NEGATIVE (NEGATIVE); GLUCOSE, URINE NEGATIVE (NEGATIVE); KETONES,URINE NEGATIVE (NEGATIVE); LEUKOCYTE ESTERASE,URINE NEGATIVE (NEGATIVE); NITRITE,URINE NEGATIVE (NEGATIVE); PROTEIN,URINE NEGATIVE (NEGATIVE); URINE SPECIFIC GRAVITY 1.003; UROBILINOGEN,URINE NEGATIVE mg/dL (<2.0)
[2017-07-05 15:44] LABS: URINE BARBITURATES SCREEN NEGATIVE; URINE METHADONE SCREEN NEGATIVE; URINE OPIATES LOW NEGATIVE; URINE PHENCYCLIDINE SCREEN NEGATIVE
[2017-07-05 16:48] LABS: ABSOLUTE BASOPHILS # (AUTO) 0.1 10^3/uL (0.0-0.2); ABSOLUTE EOSINOPHILS # (AUTO) 0.4 10^3/uL (0.0-0.6); ABSOLUTE LYMPHOCYTES (AUTO) 1.4 10^3/uL (0.5-4.7); ABSOLUTE MONOCYTES (AUTO) 0.4 10^3/uL (0.1-1.4); ABSOLUTE NEUT (AUTO) 3.3 10^3/uL (1.7-8.2); BASOPHILS % (AUTO) 1.1 % (0-2); EOSINOPHILS % (AUTO) 6.4 % (0-6); HEMATOCRIT 43.4 % (37.9-51.0); HEMOGLOBIN 15.5 g/dL (13.5-17.0); HGB HCT DIFFERENCE 3.1; MEAN CORPUSCULAR HEMOGLOBIN 29.2 pg (27.0-33.4); MEAN CORPUSCULAR HGB CONC 35.6 g/dL (32.0-36.0); MEAN CORPUSCULAR VOLUME 82 fl (80-97); MONOCYTES % (AUTO) 7.2 % (3-13); RED CELL DISTRIBUTION WIDTH 12.5 % (11.5-14.0); SEGMENTED NEUTROPHILS % (AUTO) 59.3 % (42-78); WHITE BLOOD COUNT 5.5 10^3/uL (4.0-10.5)
[2017-07-05 17:04] LABS: ALANINE AMINOTRANSFERASE 50 U/L (21-72); ALKALINE PHOSPHATASE 90 U/L (38-126); ANION GAP 14 (5-19); ASPARTATE AMINO TRANSFERASE 39 U/L (17-59); BLOOD UREA NITROGEN 4 mg/dL (7-20); CALCIUM 7.9 mg/dL (8.4-10.2); CARBON DIOXIDE 27 mmol/L (22-30); CHLORIDE 108 mmol/L (98-107); CREATININE RESULT 0.79 mg/dL (0.52-1.25); GLUCOSE 111 mg/dL (75-110); POTASSIUM 3.6 mmol/L (3.6-5.0); SODIUM 149.4 mmol/L (137-145)
[2017-07-05 17:05] LABS: BILIRUBIN,DIRECT 0.4 mg/dL (0.0-0.4); BILIRUBIN,TOTAL 0.6 mg/dL (0.2-1.3); TOTAL PROTEIN 6.5 g/dL (6.3-8.2)
[2017-07-05 17:20] LABS: ALCOHOL 354 mg/dL (NONE DETECTED)
--- NOTE | 2017-07-05 18:01 | ER Document Report ---
ED Psych Disorder / Suicide - General Chief Complaint: Alcohol Withdrawl Stated Complaint: ALCOHOL WITHDRAWL Time Seen by Provider: 07/05/17 14:59 Notes: The patient is a 32-year-old male, past medical history chronic alcoholic, presents requesting detox. His last drink was just prior to arrival and he had a large amount. Patient is somnolent and unable to provide any additional history. He will awaken to voice. TRAVEL OUTSIDE OF THE [place] IN LAST 30 DAYS: No - Related Data Allergies/Adverse Reactions: bee stings Allergy (Uncoded 07/05/17 14:47) Past Medical History - General Information source: Patient Cannot obtain history due to: Intoxicated - Social History Smoking Status: Unknown if Ever Smoked Chew tobacco use (# tins/day): No Frequency of alcohol use: Heavy Drug Abuse: Cocaine Family History: Reviewed & Not Pertinent Patient has suicidal ideation: No Patient has homicidal ideation: No - Past Medical History Cardiac Medical History: Reports: Hx Hypertension Renal/ Medical History: Denies: Hx Peritoneal Dialysis Surgical Hx: Negative - Immunizations Hx Diphtheria, Pertussis, Tetanus Vaccination: Yes - uncertain Review of Systems - Review of Systems -: Yes ROS unobtainable due to patient's medical condition Physical Exam - Vital signs Vitals: Temp Pulse Resp BP Pulse Ox 97.3 F 106 H 20 134/80 H 95 07/05/17 14:31 07/05/17 14:31 07/05/17 14:31 07/05/17 14:31 07/05/17 14:31 - Notes Notes: PHYSICAL EXAMINATION: GENERAL: Smells of alcohol. HEAD: Atraumatic, normocephalic. EYES: Pupils equal round and reactive to light, extraocular movements intact, sclera anicteric, conjunctiva are normal. ENT: nares patent, oropharynx clear without exudates. Moist mucous membranes. NECK: Normal range of motion, supple without lymphadenopathy LUNGS: Breath sounds clear to auscultation bilaterally and equal. No wheezes rales or rhonchi. HEART: Regular rate and rhythm without murmurs ABDOMEN: Soft, nontender, normoactive bowel sounds. No guarding, no rebound. No masses appreciated. EXTREMITIES: Normal range of motion, no pitting or edema. No cyanosis. NEUROLOGICAL: Cranial nerves grossly intact. Normal speech, normal gait. Normal sensory and motor exams. PSYCH: Clinicially intoxicated. SKIN: Warm, Dry, normal turgor, no rashes or lesions noted. Course - Re-evaluation Re-evalutation: Patient alcohol level is 354. Will monitor patient overnight and have mental health reassess patient in the morning. - Vital Signs Vital signs: Temp Pulse Resp BP Pulse Ox 97.3 F 106 H 20 134/80 H 95 07/05/17 14:31 07/05/17 14:31 07/05/17 14:31 07/05/17 14:31 07/05/17 14:31 - Laboratory Result Diagrams: 07/05/17 16:30 07/05/17 16:30 Laboratory results interpreted by me: 07/05/17 07/05/17 16:30 16:30 Eosinophils % 6.4 H Sodium 149.4 H Chloride 108 H BUN 4 L Glucose 111 H Calcium 7.9 L Salicylates < 1.0 L Acetaminophen < 10 L Serum Alcohol 354 H* Discharge - Discharge Clinical Impression: Alcohol intoxication Qualifiers: Complication of substance-induced condition: uncomplicated Qualified Code(s): F10.920 - Alcohol use, unspecified with intoxication, uncomplicated Condition: Stable Disposition: PSYCH HOSP/UNIT
--- NOTE | 2017-07-05 18:12 | EKG REPORT ---
SEVERITY:- NORMAL ECG - SINUS RHYTHM : Confirmed by: Piter Villar MD 05-Jul-2017 18:12:06
[2017-07-06] MEDS ORDERED: ALBUTEROL SULFATE HFA (90 MCG/PUFF) 8 GM MDI (1 MDI/ER DISP) IH ONE (00:34)
[2017-07-06] MEDS ORDERED: QUETIAPINE FUMARATE 25 MG TABLET PO ONE (00:55)
[2017-07-06] MEDS ORDERED: LORAZEPAM 1 MG TABLET ONE (00:56)
[2017-07-06] MEDS ORDERED: LORAZEPAM 1 MG TABLET PO ONE (01:00)
--- NOTE | 2017-07-06 09:46 | ER Document Report ---
ED Psych Disorder / Suicide - General Information source: Patient Cannot obtain history due to: Intoxicated TRAVEL OUTSIDE OF THE U.S. IN LAST 30 DAYS: No - HPI Patient complains to provider of: Suicidal ideation - stated he wanted to shoot himself with a gun, Other - etoh and cocaine binge Onset: Other Onset was: Cannot confirm Suicide Risk Factors: Male, Other - recent break up, also reported at triage he recently returned from [place] Situational problems related to: Significant other, Other - recent break up, also reported at triage he recently returned from [place] Normal mood: No Associated symptoms: Anxious, Irritable, Labile, Other - withdrawl symptoms Similar symptoms previously: No Recently seen / treated by doctor: No <JERARDO LEWIS - Last Filed: 07/06/17 09:33> <LEX DAVE - Last Filed: 07/06/17 12:20> - General Chief Complaint: Alcohol Withdrawl Stated Complaint: ALCOHOL WITHDRAWL Time Seen by Provider: 07/05/17 14:59 - HPI Notes: Conducted check in with patient who is a 32 year old male under IVC at [facility]. Patient this morning states he is not feeling well due to withdrawal symptoms. Patient states he started a cocaine and alcohol binge around a week ago and needs to get off them. Patient denies SI. Patient states he does not remember making the statement that he would shoot himself in the head. Patient states he does not even have a gun, nor does he have access. Patient states he is from [place] and does not know where he is right now. Patient states the person who dropped him off will not help him beyond that. He states he has not returned from [place] and does not know where that information came from. Patient denies SI. Patient reports a long history of substance abuse, and specifically alcohol withdrawal related seizures. Patient is A&O. Mood is anxious with congruent affect. Patient denies suicidal /homicidal ideations, intent, plan, or means. Patient denies A.V H; delusions not noted. Thought processes were goal oriented towards remaining in the ER. Conversational speech was shakey and low for rate, tone, and prosody. Intellectual abilities were estimated within average range. Attention and focus were poor. Insight, judgment, and impulse control were poor. Cocaine Use Disorder Alcohol Use Disorder, Severe Patient is psychiatrically cleared for discharge. Patient is recommended for rescind IVC and discharge to present to [facility] to request a detox bed. Advised patient that in [place] the detox process is largely voluntary in nature. Patient continues to maintain he cannot leave. Patient does continue to deny SI.HI. made aware of patient's reported history. I consulted with Dr. Washington in regards to the care and management of this patient. Patient is a 32 year old male who presented to [facility] ER due to suicidal ideations , stating he needed help secondary to a cocaine and alcohol binge over the past 1.5 weeks. Patient additionally reported at triage that he recently returned from [place]. 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 Patient at this time is sleeping and unable to arouse. Will request nurse attempt to wake patient with a sternum rub. Will continue to attempt to wake patient up. (JERARDO LEWIS) - Related Data Allergies/Adverse Reactions: bee stings Allergy (Uncoded 07/05/17 14:47) Past Medical History - General Information source: Patient - Social History Smoking Status: Unknown if Ever Smoked Chew tobacco use (# tins/day): No Frequency of alcohol use: Heavy Drug Abuse: Cocaine Family History: Reviewed & Not Pertinent Patient has suicidal ideation: No Patient has homicidal ideation: No - Past Medical History Cardiac Medical History: Reports: Hx Hypertension Renal/ Medical History: Denies: Hx Peritoneal Dialysis Surgical Hx: Negative - Immunizations Hx Diphtheria, Pertussis, Tetanus Vaccination: Yes - uncertain <JERARDO LEWIS - Last Filed: 07/06/17 09:33> - Vital signs Vitals: Temp Pulse Resp BP Pulse Ox 97.3 F 106 H 20 134/80 H 95 07/05/17 14:31 07/05/17 14:31 07/05/17 14:31 07/05/17 14:31 07/05/17 14:31 Course - Laboratory Result Diagrams: 07/05/17 16:30 07/05/17 16:30 <JERARDO LEWIS - Last Filed: 07/06/17 09:33> - Laboratory Result Diagrams: 07/05/17 16:30 07/05/17 16:30 <LEX DAVE - Last Filed: 07/06/17 12:20> - Re-evaluation Re-evalutation: 07/06/17 09:57 Patient seen and evaluated this time denies any suicidal ideation denies any access to weapons. Patient has no signs of any overt withdrawal symptoms. A research the patient's prescription medication shows multiple prescription for Librium in the past patient looks to have gone to rehab in the past. Patient will be discharged home at this time encouraged to follow-up with port. Patient does not meet any IVC criteria at this time will be discharged (LEX DAVE) - Vital Signs Vital signs: Temp Pulse Resp BP Pulse Ox 97.5 F 80 18 132/70 H 100 07/06/17 10:11 07/06/17 10:11 07/06/17 10:11 07/06/17 10:11 07/06/17 10:11 - Laboratory Laboratory results interpreted by me: 07/05/17 07/05/17 16:30 16:30 Eosinophils % 6.4 H Sodium 149.4 H Chloride 108 H BUN 4 L Glucose 111 H Calcium 7.9 L Salicylates < 1.0 L Acetaminophen < 10 L Serum Alcohol 354 H* Discharge <JERARDO LEWIS - Last Filed: 07/06/17 09:33> <LEX DAVE - Last Filed: 07/06/17 12:20> - Discharge Clinical Impression: Alcohol intoxication Qualifiers: Complication of substance-induced condition: uncomplicated Qualified Code(s): F10.920 - Alcohol use, unspecified with intoxication, uncomplicated Condition: Stable Disposition: HOME, SELF-CARE Additional Instructions: Cocaine Abuse Cocaine causes many dangerous medical problems. Problems can occur even with "usual" amounts. Cocaine affects judgement, creating a sense of invulnerability. Cocaine users often make bad decisions that seem "great" at the time. Most cocaine users eventually will be hurt by bad job performance, damaged personal relations, crime, and unsafe sexual practices. Toxic effects of cocaine can include seizures, hallucinations, delusions, high blood pressure, heart damage, or sudden . There's always the risk of a "bad batch." But heart attacks, brain hemorrhages, or cardiac arrest can occur unpredictably even with "normal" use. Injection of cocaine is risky for abscesses, endocarditis (heart infection) , pneumonia, and AIDS. Withdrawal from cocaine often causes anxiety and drug cravings. Some users become paranoid and psychotic. Many treatment programs are available, but you must make the decision to quit. Medication can be prescribed to control the symptoms of cocaine toxicity (beta blockers or benzodiazepines). Withdrawal symptoms may require tranquilizers. Alcohol Withdrawal Your symptoms are caused by alcohol withdrawal. After a period of frequent drinking, the brain and body are changed by the alcohol. When you quit or reduce your drinking, the nervous system becomes unstable. Withdrawal symptoms can start a few hours after your last drink, but sometimes don't begin until a couple of days later. Symptoms can include shakiness, sweating, insomnia, nausea , vomiting, fearfulness, hallucinations, and seizures. In addition to the acute effects of alcohol withdrawal, we often have to deal with the medical effects of alcoholism. These problems often include dehydration, stomach irritation, intestinal bleeding, low blood sugar, liver disease, and pancreas inflammation. Treatment for alcohol withdrawal includes mild sedatives, vitamins, and fluids. You need to be with someone who can help if symptoms become severe. Many patients can withdraw at home. Admission to the hospital or a detox facility may be necessary if withdrawal symptoms are severe and uncontrollable. Abstaining from alcohol is the only effective long-term treatment. If you start drinking again, you will not be able to control yourself after the first drink. Treatment programs are available. In addition, many alcoholics benefit from Alcoholics Anonymous or other support groups available through your counselor or nondenominational associate school psychologist. [facility] and [facility] are support groups for friends and family members of an alcoholic. Go to the emergency room if you develop persistent vomiting, severe abdominal pain, fever, shortness of breath, hallucinations, uncontrollable tremors, or seizures. Acute Alcohol Intoxication Your evaluation revealed very high levels of alcohol. You can from drinking a large amount of alcohol rapidly! Further, there's the risk of falls , traffic accidents, and fights. A high portion (about 50 percent) of the serious injuries seen in hospital emergency rooms are caused by alcohol. Alcohol overdosage is usually due to an underlying emotional or psychiatric problem. You may benefit from counselling. If "binge" drinking is an ongoing problem for you, or if you drink ANY AMOUNT of alcohol EVERY day, you most likely have a tendency to alcoholism. You should avoid alcohol totally. We can refer you for treatment. Persons with alcohol problems are often also prone to other addictions -- you should discuss any use of medications or drugs with the doctor. You should be watched at home for the next several hours by someone who has not been drinking. Get extra fluids for the next 24 hours. Call the doctor if there is repeated vomiting, increasing headache, decreasing level of alertness, or any other worsening. Please go directly to [facility] to request a detox bed. You have been provided a list of resources to assist you in following up. Alcohol and drug treatment in the [facility] are voluntary processes. Prescriptions: Chlordiazepoxide HCl [Librium 25 mg Capsule] 1 cap PO QID #10 capsule Referrals: [facility] [Provider Group] - 07/06/17 (They require you to present in person to request detox assistance.)
--- NOTE | 2017-07-06 09:51 | ER Document Report ---
Doctor's Note Notes: 07/06/17 09:51 Patient has been seen and evaluated resting comfortably no acute distress. Laboratory values previous provider note and vital signs have been evaluated. Patient otherwise looks to be stable for disposition/transfer.
[2017-07-06 10:12] VITALS: BP 132/70
== END 2017-07-06 10:12 | disposition home or self-care (01) ==
LOC: ER 14:28
DX: F10.229 Alcohol dependence with intoxication, unspecified (principal); F41.9 Anxiety disorder, unspecified; F14.10 Cocaine abuse, uncomplicated; I10 Essential (primary) hypertension; Z91.030 Bee allergy status
CPT/HCPCS: 93005; 99285; 96360; 36415; 80307 ×4; 85025; 80053; 81001; 93010; J7030; J3490

== ENCOUNTER 2017-07-06 21:43 | Emergency (ER) | payer SELFPAY ==
--- NOTE | 2017-07-06 22:37 | ER Document Report ---
ED Medical Screen (RME) - General Chief Complaint: ETOH Abuse Stated Complaint: ETOH ABUSE Notes: Patient is a 32-year-old male, past medical history chronic alcoholism, cocaine abuse, presents after he was hard to arouse in the back of a taxi. Patient admitted to drinking alcohol and using cocaine tonight. PE: Will awake to sternal rub. No signs of trauma. RRR. I have greeted and performed a rapid initial assessment of this patient. A comprehensive ED assessment and evaluation of the patient, analysis of test results and completion of the medical decision making process will be conducted by additional ED providers. TRAVEL OUTSIDE OF THE U.S[place] IN LAST 30 DAYS: No - Related Data Allergies/Adverse Reactions: bee stings Allergy (Uncoded 07/06/17 22:17) Past Medical History - Past Medical History Cardiac Medical History: Reports: Hx Hypertension Renal/ Medical History: Denies: Hx Peritoneal Dialysis - Immunizations Hx Diphtheria, Pertussis, Tetanus Vaccination: Yes - uncertain Physical Exam - Vital signs Vitals: Temp Pulse Resp BP Pulse Ox 98.7 F 106 H 24 H 135/79 H 99 07/06/17 22:15 07/06/17 22:15 07/06/17 22:15 07/06/17 22:15 07/06/17 22:15 Course - Vital Signs Vital signs: Temp Pulse Resp BP Pulse Ox 98.7 F 106 H 24 H 135/79 H 99 07/06/17 22:15 07/06/17 22:15 07/06/17 22:15 07/06/17 22:15 07/06/17 22:15
[2017-07-06] MEDS ORDERED: FOLIC ACID INJ 5 MG/1 ML 10 ML VIAL IV ONE (23:45)
[2017-07-06] MEDS ORDERED: NORMAL SALINE 1000 ML 1,000 ML IV PRN (23:46)
--- NOTE | 2017-07-06 23:46 | ER Document Report ---
ED General - General TRAVEL OUTSIDE OF THE [place].S[place] IN LAST 30 DAYS: No - General Chief Complaint: ETOH Abuse Stated Complaint: ETOH ABUSE Time Seen by Provider: 07/06/17 22:38 Notes: Patient is a 32-year-old male who presents with complaint of being found in the back of a taxicab passed out. Patient has a history of chronic alcoholism. He also has a previous history of cocaine abuse. He tells me that he took Librium earlier today but then also drank a lot of alcohol. He does not remember much after that. He denies taking any drugs. He denies any trauma or injuries. He denies any recent fevers or infections. He has no other complaints at this time. (YANY SOTELO) - Related Data Allergies/Adverse Reactions: bee stings Allergy (Uncoded 07/06/17 22:17) Past Medical History - Social History Smoking Status: Unknown if Ever Smoked Frequency of alcohol use: Heavy Drug Abuse: None Family History: Reviewed & Not Pertinent Patient has suicidal ideation: No Patient has homicidal ideation: No - Past Medical History Cardiac Medical History: Reports: Hx Hypertension Renal/ Medical History: Denies: Hx Peritoneal Dialysis - Immunizations Hx Diphtheria, Pertussis, Tetanus Vaccination: Yes - uncertain Review of Systems - Review of Systems Notes: My Normal Review Basic REVIEW OF SYSTEMS: CONSTITUTIONAL : Denies fever, chills, or sweats. Denies recent illness. CARDIOVASCULAR: Denies chest pain. RESPIRATORY: Denies cough, cold, or chest congestion. Denies shortness of breath, difficulty breathing, or wheezing. GASTROINTESTINAL: Denies abdominal pain. Denies nausea, vomiting, or diarrhea. MUSCULOSKELETAL: Denies neck or back pain or joint pain or swelling. SKIN: Denies rash or skin lesions. NEUROLOGICAL: Found passed out in back of a taxicab.. Denies headache. Denies weakness or paralysis or loss of use of either side. Denies problems with gait or speech. Denies sensory or motor loss. ALL OTHER SYSTEMS REVIEWED AND NEGATIVE. (YANY SOTELO) Physical Exam - Vital signs Vitals: Temp Pulse Resp BP Pulse Ox 98.7 F 106 H 24 H 135/79 H 99 07/06/17 22:15 07/06/17 22:15 07/06/17 22:15 07/06/17 22:15 07/06/17 22:15 - Notes Notes: General Appearance: Well nourished, cooperative, no acute distress, no obvious discomfort. Patient is slurring his words and is obviously intoxicated. He is otherwise cooperative. Vitals: reviewed, See vital signs table. Head: no swelling or tenderness to the head Eyes: PERRL, EOMI, Conjuctiva clear Mouth: No decreasd moisture Lungs: No wheezing, No rales, No rhonci, No accessory muscle use, good air exchange bilaterally. Heart: Normal rate, Regular rythm, No murmur, no rub Neck: No pain palpation of midline cervical spine. Musculoskeletal: Small scratch to the face. Otherwise no other signs of bruising or trauma. Abdomen: Normal BS, soft, No rigidity, No abdominal tenderness, No guarding, no rebound, no abdominal masses, no organomegaly Extremities: strength 5/5 in all extremities, good pulses in all extremities, no swelling or tenderness in the extremities, no edema. Skin: warm, dry, appropriate color, no rash Neuro: speech clear, oriented x 3, normal affect, responds appropriately to questions. Patient slightly slurred. Patient does move all extremities without difficulty. Patient appears intoxicated with alcohol. (YANY SOTELO) Course - Re-evaluation Re-evalutation: 07/07/17 06:10 I did wake patient up. Patient's told me that does not feel good they think she is going through withdrawal. I informed him that he has no tremor is not shaking and he has a normal heart rate and therefore is not going through withdrawal. Patient did not set up and said he cannot leave because he cannot walk and he cannot stand up on his legs. I told him that I suspect that is not true being that he was able to sit up out of bed without any difficulty was able to push his feet against the floor well without difficulty and that there is actually no reason why he should be unable to stand. Patient says that he still feels that he is strong. I informed her that we will get an alcohol level. After I left the room to order alcohol level the patient in stood up out of bed and start walking around the room without any difficulty. We will go ahead and get alcohol level. Once his alcohol level is below 125 he will be stable to be discharged home. I feel clinically the patient is already clinically sober based on his interaction with me and the fact that he is able stand and walk without any staggering and also he is not slurring his words. I suspect the patient has some secondary gain wanting to stay in the hospital as he most likely does not have a place to stay in the seems evident after talking to him. I will prescribe gabapentin help him with withdrawl. I informed him he cannot drink when he takes his medications. Long discussion with him informed him that he will not improve from alcohol abuse until he decides himself that he wants to stop drinking. I informed him that he will continue to fill inpatient and outpatient therapies for alcohol dependence if he continues to decide to drink as soon as he is discharged from facilities. Patient shows understanding of this. Dictation of this chart was performed using voice recognition software; therefore, there may be some unintended grammatical errors. (YANY SOTELO) - Vital Signs Vital signs: Temp Pulse Resp BP Pulse Ox 98.7 F 106 H 19 153/99 H 100 07/06/17 22:15 07/06/17 22:15 07/07/17 06:01 07/07/17 06:01 07/07/17 06:01 Discharge - Discharge Clinical Impression: Alcohol intoxication Qualifiers: Complication of substance-induced condition: uncomplicated Qualified Code(s): F10.920 - Alcohol use, unspecified with intoxication, uncomplicated Condition: Good Additional Instructions: Please take the Neurontin as prescribed. This will help prevent withdrawal symptoms. Do not drink alcohol when taking this medication. Return to ER if you are continuing to have any withdrawal symptoms by taking the medication. Please follow-up with organization such as Alcoholics Anonymous to try to help prevent continued alcohol abuse. Prescriptions: Gabapentin 400 mg PO ASDIR PRN #24 capsule PRN Reason:
[2017-07-06] MEDS ORDERED: THIAMINE HCL 100 MG in NORMAL SALINE 50 ML IV ONE (23:47)
[2017-07-07] MEDS ORDERED: FOLIC ACID INJ 5 MG/1 ML 10 ML VIAL IV ONE (01:00)
[2017-07-07] MEDS ORDERED: THIAMINE HCL INJ 200 MG/2 ML VIAL IV ONE (01:00)
[2017-07-07] MEDS ORDERED: GABAPENTIN 400 MG CAPSULE PO SCH (07:00)
[2017-07-07 10:02] VITALS: BP 148/84
== END 2017-07-07 10:02 | disposition home or self-care (01) ==
LOC: ER 21:43
DX: F10.920 Alcohol use, unspecified with intoxication, uncomplicated (principal); R55 Syncope and collapse
CPT/HCPCS: 99284; 96361; 96374; 36415; 82962; 80307; J3411; J7030

== ENCOUNTER 2017-07-08 16:04 | Emergency (ER) | payer SELFPAY ==
[2017-07-08] MEDS ORDERED: NORMAL SALINE 1000 ML 1,000 ML IV PRN (16:58)
--- NOTE | 2017-07-08 17:28 | ER Document Report ---
ED General - General Chief Complaint: ETOH Abuse Stated Complaint: ETOH Time Seen by Provider: 07/08/17 16:53 TRAVEL OUTSIDE OF THE [place] IN LAST 30 DAYS: No - HPI Notes: Patient is a chronic alcoholic who presents to the ED for the 4th consecutive day by EMS requesting detox. Pt has been drinking all day. Pt is currently homeless and was directed by social work nurse that he needs to call the detox clinic himself in [place]. Patient is somnolent and unable to provide any additional history. He will awaken to voice. Pt was given Gabapentin to take PRN withdrawal symptoms at 2nd visit to the ED by Dr. Ham. - Related Data Allergies/Adverse Reactions: bee stings Allergy (Uncoded 07/06/17 22:17) Past Medical History - Social History Smoking Status: Unknown if Ever Smoked Frequency of alcohol use: Heavy Family History: Reviewed & Not Pertinent - Past Medical History Cardiac Medical History: Reports: Hx Hypertension Renal/ Medical History: Denies: Hx Peritoneal Dialysis - Immunizations Hx Diphtheria, Pertussis, Tetanus Vaccination: Yes - uncertain Review of Systems - Review of Systems Notes: REVIEW OF SYSTEMS: CONSTITUTIONAL : Denies fever, chills, or sweats. Denies recent illness. EENT: Denies eye, ear, throat, or mouth pain or symptoms. Denies nasal or sinus congestion or discharge. Denies throat, tongue, or mouth swelling or difficulty swallowing. CARDIOVASCULAR: Denies chest pain. Denies palpitations or racing or irregular heart beat. Denies ankle edema. RESPIRATORY: Denies cough, cold, or chest congestion. Denies shortness of breath, difficulty breathing, or wheezing. GASTROINTESTINAL: Denies abdominal pain or distention. Denies nausea, vomiting , or diarrhea. Denies blood in vomitus, stools, or per rectum. Denies black, tarry stools. Denies constipation. GENITOURINARY: Denies difficulty urinating, painful urination, burning, frequency, blood in urine, or discharge. MUSCULOSKELETAL: Denies back or neck pain or stiffness. Denies joint pain or swelling. SKIN: Denies rash, lesions or sores. NEUROLOGICAL: Denies confusion or altered mental status. Denies headache. Denies seizures. PSYCHIATRIC: Denies anxiety or stress. Denies depression, suicidal ideation, or homicidal ideation. ALL OTHER SYSTEMS REVIEWED AND NEGATIVE. Dictation was performed using Dragon voice recognition software Physical Exam - Vital signs Vitals: Temp Resp BP Pulse Ox 98.0 F 21 H 159/93 H 93 07/08/17 16:40 07/08/17 16:40 07/08/17 16:40 07/08/17 16:40 Notes: PHYSICAL EXAMINATION: GENERAL: Well-appearing, well-nourished and in no acute distress. sleeping currently. Smells of ETOH HEAD: Atraumatic, normocephalic. EYES: Pupils equal round and reactive to light, extraocular movements intact, sclera anicteric, conjunctiva are normal. ENT: Nares patent and without discharge. oropharynx clear without exudates. No tonsilar hypertrophy or erythema. Moist mucous membranes. No sinus tenderness. NECK: Normal range of motion, supple without lymphadenopathy. No rigidity. LUNGS: Breath sounds clear to auscultation bilaterally and equal. No wheezes rales or rhonchi. HEART: Regular rate and rhythm without murmurs, rubs, gallops. ABDOMEN: Soft, nontender, nondistended abdomen. No guarding, no rebound. No masses appreciated. Normal bowel sounds present. No CVA tenderness bilaterally. Musculoskeletal: FROM to passive/active. Strength 5+/5. Extremities: No cyanosis, clubbing, or edema b/l. Peripheral pulses 2+. Capillary refill less than 3 seconds. PSYCH: intoxicated but calm. SKIN: Warm, Dry, normal turgor, no rashes or lesions noted. Course - Re-evaluation Re-evalutation: 07/08/17 19:45 IV NS x2 bags ordered/given. will most likely need a 3rd. Thiamine 100mg IV ordered/given CMP shows that he is dry ETOH 409 Dinner tray ordered Vitals are stable. No withdrawal signs/symptoms noted. Pt advised to call detox center tomorrow as previously instructed. Recheck/establish with PCM this week Return to ED with worsening/concerning symptoms otherwise. pt in agreement. Pt to be discharged once clinically sober. 07/08/17 19:30 Transferred care to Bella FRAZIER. - Vital Signs Vital signs: Temp Pulse Resp BP Pulse Ox 98.0 F 19 152/83 H 92 07/08/17 16:40 07/08/17 18:01 07/08/17 18:00 07/08/17 18:01 - Laboratory Result Diagrams: 07/08/17 17:45 Laboratory results interpreted by me: 07/08/17 17:45 Sodium 150.3 H BUN 4 L Glucose 118 H Serum Alcohol 406 H* Discharge - Discharge Clinical Impression: ETOH abuse Condition: Stable Disposition: HOME, SELF-CARE Instructions: Acute Alcohol Intoxication ([facility]), Chronic Alcoholism ([facility]), Follow-Up Care ([facility]) Additional Instructions: Maintain adequate fluid and food intake [place] diet ([employer] Bananas, rice, apples, toast, etc Refrain from Alcohol* Monitor for any worsening symptoms Make sure you are staying hydrated enough to urinate and have normal BM's Recheck with your PCM in 2-3 days* Call the Detox center in [place] ([facility]) tomorrow Return to the ED with any worsening symptoms and/or development of fever, headache, chest pain, palpitations, syncope, shortness of breath, trouble breathing, abdominal pain, n/v/d, blood in stool/urine, weakness, seizure, or other worsening symptoms that are concerning to you. Forms: Elevated Blood Pressure Referrals: [facility] [Provider Group] - Follow up tomorrow [facility] [Provider Group] - Follow up in 3-5 days
[2017-07-08 18:19] LABS: ALANINE AMINOTRANSFERASE 50 U/L (21-72); ALBUMIN 4.4 g/dL (3.5-5.0); ALKALINE PHOSPHATASE 109 U/L (38-126); ANION GAP 18 (5-19); ASPARTATE AMINO TRANSFERASE 56 U/L (17-59); BILIRUBIN,DIRECT 0.4 mg/dL (0.0-0.4); BILIRUBIN,TOTAL 0.6 mg/dL (0.2-1.3); BLOOD UREA NITROGEN 4 mg/dL (7-20); CALCIUM 8.8 mg/dL (8.4-10.2); CARBON DIOXIDE 25 mmol/L (22-30); CHLORIDE 107 mmol/L (98-107); CREATININE RESULT 0.77 mg/dL (0.52-1.25); GLUCOSE 118 mg/dL (75-110); POTASSIUM 4.1 mmol/L (3.6-5.0); SODIUM 150.3 mmol/L (137-145); TOTAL PROTEIN 7.1 g/dL (6.3-8.2)
[2017-07-08 18:30] LABS: ALCOHOL 406 mg/dL (NONE DETECTED)
[2017-07-08] MEDS ORDERED: THIAMINE HCL 100 MG in NORMAL SALINE 50 ML IV ONE (18:47)
[2017-07-08] MEDS ORDERED: THIAMINE HCL INJ 200 MG/2 ML VIAL ONE ×2 (19:09→19:20)
[2017-07-08 22:30] VITALS: BP 142/96
== END 2017-07-08 22:39 | disposition home or self-care (01) ==
LOC: ER 16:04
DX: F10.129 Alcohol abuse with intoxication, unspecified (principal); Y90.8 Blood alcohol level of 240 mg/100 ml or more; I10 Essential (primary) hypertension; Z59.0 Homelessness
CPT/HCPCS: 99284; 96360; 36415; 80307; 80053; J3411; J7030

== ENCOUNTER 2017-10-10 18:25 | Emergency (ER) | payer SELFPAY ==
--- NOTE | 2017-10-10 19:08 | ER Document Report ---
ED Medical Screen (RME) - General Chief Complaint: General Weakness Stated Complaint: MOUTH PAIN, TIRED Time Seen by Provider: 10/10/17 19:04 Mode of Arrival: Ambulatory Information source: Patient TRAVEL OUTSIDE OF THE [place] IN LAST 30 DAYS: No - HPI Patient complains to provider of: fatigue, swollen gums, mouth ulcer Onset: Other - pt with c/o fatigue, generalized arthralgias and myalgias, swoollen gums, and mouth ulcer for the past few days - Related Data Allergies/Adverse Reactions: bee stings Allergy (Uncoded 10/10/17 18:28) Past Medical History - Past Medical History Cardiac Medical History: Reports: Hx Hypertension Renal/ Medical History: Denies: Hx Peritoneal Dialysis - Immunizations Hx Diphtheria, Pertussis, Tetanus Vaccination: Yes - uncertain Physical Exam - Vital signs Vitals: Temp Pulse Resp BP Pulse Ox 97.9 F 76 20 143/86 H 96 10/10/17 18:35 10/10/17 18:35 10/10/17 18:35 10/10/17 18:35 10/10/17 18:35 Course - Vital Signs Vital signs: Temp Pulse Resp BP Pulse Ox 97.9 F 76 20 143/86 H 96 10/10/17 18:35 10/10/17 18:35 10/10/17 18:35 10/10/17 18:35 10/10/17 18:35
[2017-10-10 19:56] LABS: ABSOLUTE BASOPHILS # (AUTO) 0.1 10^3/uL (0.0-0.2); ABSOLUTE EOSINOPHILS # (AUTO) 0.3 10^3/uL (0.0-0.6); ABSOLUTE LYMPHOCYTES (AUTO) 1.6 10^3/uL (0.5-4.7); ABSOLUTE MONOCYTES (AUTO) 0.6 10^3/uL (0.1-1.4); ABSOLUTE NEUT (AUTO) 3.9 10^3/uL (1.7-8.2); BASOPHILS % (AUTO) 1.2 % (0-2); HEMATOCRIT 44.1 % (37.9-51.0); HEMOGLOBIN 15.4 g/dL (13.5-17.0); MEAN CORPUSCULAR HEMOGLOBIN 28.9 pg (27.0-33.4); MEAN CORPUSCULAR VOLUME 83 fl (80-97); MONOCYTES % (AUTO) 9.5 % (3-13); PLATELET COUNT 243 10^3/uL (150-450); RED BLOOD COUNT 5.34 10^6/uL (4.35-5.55); RED CELL DISTRIBUTION WIDTH 12.7 % (11.5-14.0); SEGMENTED NEUTROPHILS % (AUTO) 60.3 % (42-78); TOTAL CELLS COUNTED % (AUTO) 100 %; WHITE BLOOD COUNT 6.5 10^3/uL (4.0-10.5)
[2017-10-10 20:05] LABS: BILIRUBIN,URINE NEGATIVE (NEGATIVE); GLUCOSE, URINE NEGATIVE (NEGATIVE); KETONES,URINE NEGATIVE (NEGATIVE); LEUKOCYTE ESTERASE,URINE NEGATIVE (NEGATIVE); NITRITE,URINE NEGATIVE (NEGATIVE); PROTEIN,URINE 30 mg/dL (NEGATIVE); URINE SPECIFIC GRAVITY 1.036
[2017-10-10 20:07] LABS: APPEARANCE,URINE CLEAR; COLOR,URINE DARK YELLOW
[2017-10-10 20:16] LABS: A TYPE INFLUENZA AG NEGATIVE (NEGATIVE); B INFLUENZA AG NEGATIVE (NEGATIVE)
[2017-10-10 20:17] LABS: ALANINE AMINOTRANSFERASE 56 U/L (21-72); ALBUMIN 4.5 g/dL (3.5-5.0); ALKALINE PHOSPHATASE 60 U/L (38-126); ANION GAP 12 (5-19); ASPARTATE AMINO TRANSFERASE 33 U/L (17-59); BILIRUBIN,DIRECT 0.2 mg/dL (0.0-0.4); BILIRUBIN,TOTAL 0.6 mg/dL (0.2-1.3); BLOOD UREA NITROGEN 11 mg/dL (7-20); CALCIUM 9.7 mg/dL (8.4-10.2); CARBON DIOXIDE 26 mmol/L (22-30); CHLORIDE 105 mmol/L (98-107); GLUCOSE 79 mg/dL (75-110); POTASSIUM 4.1 mmol/L (3.6-5.0)
[2017-10-10 22:19] VITALS: BP 154/78
--- NOTE | 2017-10-10 22:22 | ER Document Report ---
HPI - HPI Pain Level: 4 Notes: Patient is a 32-year-old male with no significant past medical history who presents the ED complaining of swollen gums to numbers 9 and 8 as well as an aphthous ulcer to left side of his tongue 1 week. Patient states he also has felt some generalized weakness over the last several days. He is still eating and drinking without any difficulties. He is urinating normally and having normal bowel movements. Patient does use chewing tobacco. He has tried some [id number] medicine with minimal relief. He has not noticed any obvious abscess or discharge. Denies any headache, fever, head injury, neck pain, changes in vision/speech/mentation/hearing, URI, sore throat, chest pain, palpitations, syncope, cough, shortness of breath, wheeze, dyspnea, abdominal pain, nausea/vomiting/diarrhea, urinary retention, dysuria, hematuria, loss of control of bowel or bladder, numbness/tingling, saddle anesthesia, muscle paralysis/weakness, or rash. - ROS Notes: REVIEW OF SYSTEMS: CONSTITUTIONAL : see hpi. Denies fever, chills, or sweats. Denies recent illness. EENT: see hpi CARDIOVASCULAR: Denies chest pain. Denies palpitations or racing or irregular heart beat. Denies ankle edema. RESPIRATORY: Denies cough, cold, or chest congestion. Denies shortness of breath, difficulty breathing, or wheezing. GASTROINTESTINAL: Denies abdominal pain or distention. Denies nausea, vomiting , or diarrhea. Denies blood in vomitus, stools, or per rectum. Denies black, tarry stools. Denies constipation. GENITOURINARY: Denies difficulty urinating, painful urination, burning, frequency, blood in urine, or discharge. MUSCULOSKELETAL: Denies back or neck pain or stiffness. Denies joint pain or swelling. SKIN: Denies rash, lesions or sores. NEUROLOGICAL: Denies confusion or altered mental status. Denies passing out or loss of consciousness. Denies dizziness or lightheadedness. Denies headache. Denies weakness or paralysis or loss of use of either side. Denies problems with gait or speech. Denies sensory loss, numbness, or tingling. Denies seizures. ALL OTHER SYSTEMS REVIEWED AND NEGATIVE. Dictation was performed using [employer] recognition software - DERM Skin Color: Normal, [place] Past Medical History - General Information source: Patient - Social History Smoking Status: Unknown if Ever Smoked Family History: Reviewed & Not Pertinent Patient has suicidal ideation: No Patient has homicidal ideation: No - Past Medical History Cardiac Medical History: Reports: Hx Hypertension Pulmonary Medical History: Reports: Hx Asthma Renal/ Medical History: Denies: Hx Peritoneal Dialysis - Immunizations Hx Diphtheria, Pertussis, Tetanus Vaccination: Yes - uncertain Vertical Provider Document - CONSTITUTIONAL Agree With Documented VS: Yes Notes: PHYSICAL EXAMINATION: GENERAL: Well-appearing, well-nourished and in no acute distress. A&Ox4. Answers questions appropriately. HEAD: Atraumatic, normocephalic. EYES: Pupils equal round and reactive to light, extraocular movements intact, sclera anicteric, conjunctiva are normal. ENT: EAC clear b/l. TM's intact b/l without erythema, fluid, or perforation. Nares patent and without discharge. oropharynx clear without exudates. No tonsilar hypertrophy or erythema. Moist mucous membranes. No sinus tenderness. Uvula midline. No palatine shift. No tongue protrusion. No respiratory compromise. Mouth: + gingivitis noted. + mild tenderness to the gum at #8-9. No obvious abscess or discharge noted. No facial swelling. NECK: Normal range of motion, supple without lymphadenopathy. No rigidity/ meningismus. LUNGS: Breath sounds clear to auscultation bilaterally and equal. No wheezes rales or rhonchi. HEART: Regular rate and rhythm without murmurs, rubs, gallops. NEUROLOGICAL: Cranial nerves grossly intact. Normal speech, normal gait. Normal sensory, motor exams PSYCH: Normal mood, normal affect. SKIN: Warm, Dry, normal turgor, no rashes or lesions noted. - INFECTION CONTROL TRAVEL OUTSIDE OF THE [place] IN LAST 30 DAYS: No - RESPIRATORY O2 Sat by Pulse Oximetry: 96 Course - Re-evaluation Re-evalutation: 10/10/17 22:20 Patient is an afebrile, well-hydrated, 32-year-old male who presents the ED with gingivitis otherwise specified. Vitals are stable. PE is otherwise unremarkable. Patient had labs ordered through triage which were unremarkable for any acute pathology including CBC, CMP, urinalysis, and rapid influenza. [place] pending, pt to call for result tomorrow morning. Low suspicion for any meningitis, sepsis, peritonsillar/pharyngeal abscess, respiratory compromise, Yaya's, temporal arteritis, or other emergent systemic condition at this time. Patient is aware this condition can change from initial presentation and he needs to monitor symptoms closely. I will send him home with a Rx for PCN. Conservative measures otherwise for symptoms. Call to schedule an appointment with a dentist for further evaluation and management. Recheck with your PCM this week as well. Return to the ED with any worsening/concerning symptoms otherwise as reviewed in discharge. Patient is in agreement. - Vital Signs Vital signs: Temp Pulse Resp BP Pulse Ox 97.9 F 76 20 143/86 H 96 10/10/17 18:35 10/10/17 18:35 10/10/17 18:35 10/10/17 18:35 10/10/17 18:35 - Laboratory Result Diagrams: 10/10/17 19:35 10/10/17 19:35 Laboratory results interpreted by me: 10/10/17 19:35 Urine Protein 30 H Urine Urobilinogen 2.0 H Urine Ascorbic Acid 40 H Discharge - Discharge Clinical Impression: Gingivitis Condition: Stable Disposition: HOME, SELF-CARE Instructions: Dentist Additional Instructions: [place] and floss twice daily Maintain fluid intake Take antibiotics as directed Mouthwash, salt water gargles, peroxide rinse as needed Tylenol/ibuprofen as needed Recheck with PCM this week Call today/tomorrow and schedule an appointment with your dentist for further evaluation Return to the ED with any worsening symptoms and/or development of fever, headache, facial swelling, swelling of lips/tongue/throat, trouble swallowing, drooling, hoarseness, neck pain/stiffness, chest pain, palpitations, syncope, shortness of breath, trouble breathing, abdominal pain, n/v/d, numbness/tingling , or other worsening symptoms that are concerning to you. Prescriptions: Penicillin V Potassium [Penicillin Vk 500 mg Tablet] 500 mg PO BID #20 tablet Forms: Elevated Blood Pressure Referrals: [facility] [Provider Group] - Follow up as needed
[2017-10-10] MEDS ORDERED: PENICILLIN V POTASSIUM 500 MG TABLET PO ONE (22:23)
== END 2017-10-10 22:47 | disposition home or self-care (01) ==
LOC: ER 18:25
DX: K05.10 Chronic gingivitis, plaque induced (principal); K12.0 Recurrent oral aphthae; R53.1 Weakness
CPT/HCPCS: 36415; 80053; 81001; 85025; 86308; 87804; 99284

== ENCOUNTER 2017-10-16 19:36 | Emergency (ER) | payer SELFPAY ==
--- NOTE | 2017-10-16 23:13 | ER Document Report ---
ED Dizziness/Weakness - General Chief Complaint: General Weakness Stated Complaint: MOUTH PAIN Time Seen by Provider: 10/16/17 21:41 Mode of Arrival: Ambulatory Information source: Patient TRAVEL OUTSIDE OF THE [place] IN LAST 30 DAYS: No - HPI Patient complains to provider of: Weakness Notes: Patient arrives with complaints of generalized weakness, fatigue, decreased appetite, sores on his gums and under his tongue for the last week and a half. The patient was seen approximately last week and had a complete workup including blood work, urine, flu screen as well as mono screen. These were all unremarkable and negative. Patient continues to have the same symptoms. He denies any blurred or loss vision. He denies any unilateral numbness tingling or weakness. He denies any chest pain or shortness of breath. Patient states that he has not used alcohol in over 6 months. He quit smoking. He denies any illicit drug use. He denies any recent new tattoos or new sexual partners. Patient states that he has been tested for HIV several times in the past and so is been negative. He is concerned because he still feels bad despite being placed on penicillin last week. He denies any other complaints at this time. - Related Data Allergies/Adverse Reactions: bee stings Allergy (Uncoded 10/10/17 18:28) Past Medical History - Social History Smoking Status: Unknown if Ever Smoked Family History: Reviewed & Not Pertinent Patient has suicidal ideation: No Patient has homicidal ideation: No - Past Medical History Cardiac Medical History: Reports: Hx Hypertension Pulmonary Medical History: Reports: Hx Asthma Renal/ Medical History: Denies: Hx Peritoneal Dialysis - Immunizations Hx Diphtheria, Pertussis, Tetanus Vaccination: Yes - uncertain Review of Systems - Review of Systems -: Yes All other systems reviewed and negative Physical Exam - Vital signs Vitals: Temp Pulse Resp BP Pulse Ox 97.5 F 57 L 12 129/78 H 99 10/16/17 20:38 10/16/17 20:38 10/16/17 20:38 10/16/17 20:38 10/16/17 20:38 - Notes Notes: GENERAL: alert, cooperative, nontoxic, no distress. HEAD: normocephalic, atraumatic EYES: conjunctiva pink without discharge, no external redness or swelling. EARS: no external swelling, no external redness NOSE: atraumatic, no external swelling MOUTH/THROAT: mucous membranes moist and pink, posterior pharynx without erythema, swelling, exudate. No trismus or drooling. Aphthous ulcers noted to the gums and under the tongue and the mouth. No other lesions noted. NECK: soft, supple, full range of motion, no meningismus. CHEST: no distress, lungs clear and equal throughout. No wheezing, rales, rhonchi. CARDIAC: regular rate and rhythm, no murmur, normal capillary refill, normal pulses. No peripheral edema noted. ABDOMEN: Soft, nontender. BACK: full range of motion, no CVA tenderness. EXTREMITIES: full range of motion of all extremities. No redness, no swelling. NEURO: alert and oriented x 3, no focal deficits, full range of motion of all extremities. PYSCH: appropriate mood, affect. Patient is cooperative. SKIN: pink, warm, dry, no rash. Course - Re-evaluation Re-evalutation: 10/16/17 23:09 Patient is nontoxic appearing with stable vitals. Patient arrives with complaints of fatigue, decreased appetite, body aches, mouth sores. He was seen last week and had a complete workup which was negative including influenza and mono screens. Patient has no acute HIV risk factors. I offered HIV testing in the emergency department, the patient declined stating that he has had HIV tests in the past and they have all been negative. It is possible that the patient could have had influenza or mono even though the tests were negative as these are not perfect test. I offered retesting for these at this time, the patient declined. He has a nontoxic nonfocal exam at this time. I will discharge the patient home with Voltaren and Magic mouthwash. [facility] He was instructed to follow-up with him for recheck at the next available appointment. Should follow-up sooner if he develops worsening symptoms, severe headache, high fever, neck stiffness, or has any further concerns. The patient is noted to have elevated blood pressure during today's emergency department visit. The patient was informed of this finding. The patient was instructed that this may be related to pre-hypertension and requires further evaluation with a primary care provider. The patient has no hypertensive symptoms at this time. The patient's emergency department workup and current diagnosis were explained to the patient and or family. Follow-up instructions were provided. Medications if prescribed were discussed. Instructions for when to return to the emergency department including specific worrisome symptoms were discussed with the patient and/or family. - Vital Signs Vital signs: Temp Pulse Resp BP Pulse Ox 97.5 F 57 L 12 129/78 H 99 10/16/17 20:38 10/16/17 20:38 10/16/17 20:38 10/16/17 20:38 10/16/17 20:38 Discharge - Discharge Clinical Impression: Viral syndrome, Aphthous ulcer Condition: Stable Disposition: HOME, SELF-CARE Instructions: Viral Syndrome ([facility]) Additional Instructions: Take medications as prescribed. Drink plenty fluids. Get established with a primary care doctor at the next available appointment. Follow-up sooner for increased pain, fever, difficulty breathing or swallowing, persistent vomiting, or any further concerns. Your blood pressure was elevated during today's visit. Have this rechecked with your doctor. Prescriptions: Diclofenac Sodium [Voltaren 50 Mg Tablet.] 50 mg PO BID #20 tablet. Nystatin/Dexameth/Diphen [Magic Mouthwash ([facility] Formula) Susp] 5 ml PO QID #120 ml Forms: Elevated Blood Pressure, Smoking Cessation Education Referrals: [facility] [Provider Group] - Follow up as needed
[2017-10-16 23:24] VITALS: BP 132/76
== END 2017-10-16 23:25 | disposition home or self-care (01) ==
LOC: ER 19:36
DX: B34.9 Viral infection, unspecified (principal); K12.0 Recurrent oral aphthae; R53.1 Weakness; R53.83 Other fatigue; M79.1 Myalgia; I10 Essential (primary) hypertension; Z91.030 Bee allergy status
CPT/HCPCS: 99282